=== PATIENT | female | born 1985 | race Caucasian/White ===

== ENCOUNTER 2019-06-20 13:32 | Emergency (ER) | payer SELFPAY ==
[~2019-06-20] VITALS: Ht 175.3 cm; Wt 115.0 kg
[2019-06-20] MEDS ORDERED: IV NORMAL SALINE 1000ML BAG 1,000 ML IV SCH (14:12)
[2019-06-20] MEDS ORDERED: ONDANSETRON PF 4 MG/2 ML VIAL. IVP ONE (14:15)
[2019-06-20 14:21] LABS: BASO % 1 % (0-3); EOS % 0 % (0-3); HEMOGLOBIN 12.4 g/dL (12.0-15.5); LYMPH # 0.8 x10^3/uL (1.0-4.8); LYMPH % 11 % (24-48); MEAN CORPUSCULAR HEMOGLOBIN 27 pg (25-35); MEAN CORPUSCULAR HGB CONC 34 g/dL (31-37); MEAN CORPUSCULAR VOLUME 80 fL (79-100); MONO # 0.5 x10^3/uL (0.0-1.1); MONO % 7 % (0-9); NEUT # 5.7 x10^3/uL (1.8-7.7); NEUT % 82 % (31-73); PLATELET COUNT 348 x10^3/uL (140-400); RED BLOOD COUNT 4.64 x10^6/uL (3.50-5.40); RED CELL DISTRIBUTION WIDTH 16.5 % (11.5-14.5)
[2019-06-20 14:22] LABS: BILIRUBIN,URINE NEGATIVE (NEG); CLARITY,URINE CLOUDY; COLOR,URINE YELLOW; NITRITE,URINE POSITIVE (NEG); PROTEIN,URINE NEGATIVE (NEG-TRACE)
[2019-06-20 14:30] LABS: BACTERIA,URINE MANY /HPF (0-FEW); RBC,URINE OCC /HPF (0-2); SQUAMOUS EPITHELIAL CELL,UR MOD /LPF
[2019-06-20 14:30] LABS: CALCIUM 9.3 mg/dL (8.5-10.1); CREATININE 0.7 mg/dL (0.6-1.0); POTASSIUM 3.5 mmol/L (3.5-5.1)
--- NOTE | 2019-06-20 14:31 | PHYS DOC ---
General Adult EDM: Chief Complaint: ABDOMINAL PAIN IN HPI: HPI: Patient is a 34 year old female without history of medical pro who presents with complaining of abdominal pain in . Patient is G8, with LMP of April 30 with home positive without confirmed test at doctor's office with complaining of nausea and vomiting and abdominal pain. Patient states she had a home positive test 1 week ago and since then has frequent episodes of nausea and vomiting and intermittent episodes of lower abdominal cramping pain. Patient rated her pain 8/10 and denies radiation of pain. Patient states she had couple days of vaginal spotting that improved and right now she has nonbloody discharge. Patient states she have not started OB care yet and had episode of vomiting during previous but this time has had more vomiting. Patient denies fever and chills, urinary symptoms, diarrhea and constipation, sick contact. Review of Systems: Review of Systems: Constitutional: Denies fever or chills. [] Eyes: Denies change in visual acuity. [] HENT: Denies nasal congestion or sore throat. [] Respiratory: Denies cough or shortness of breath. [] Cardiovascular: Denies chest pain or edema. [] GI: Reports abdominal pain, nausea, vomiting, denies bloody stools or diarrhea. [] : Denies dysuria. [] Musculoskeletal: Denies back pain or joint pain. [] Integument: Denies rash. [] Neurologic: Denies headache, focal weakness or sensory changes. [] Endocrine: Denies polyuria or polydipsia. [] Lymphatic: Denies swollen glands. [] Psychiatric: Denies depression or anxiety. [] Heart Score: Risk Factors: Risk Factors: DM, Current or recent (<one month) smoker, HTN, HLP, family history of CAD, obesity. Risk Scores: Score 0 - 3: 2.5% MACE over next 6 weeks - Discharge Home Score 4 - 6: 20.3% MACE over next 6 weeks - Admit for Clinical Observation Score 7 - 10: 72.7% MACE over next 6 weeks - Early Invasive Strategies Current Medications: Current Medications Medications (Trade) Dose Ordered Sig/Lino Start Time Stop Time Status Last Admin Dose Admin Ondansetron HCl (Zofran) 4 mg 1X ONCE 06/20/19 14:15 06/20/19 14:16 UNV Sodium Chloride 1,000 ml @ 1,000 mls/hr Q1H 06/20/19 14:12 06/20/19 15:11 UNV Allergies: Allergies: Allergies Coded Allergies Type Severity Reaction Last Updated Verified No Known Drug Allergies 06/20/19 No Physical Exam: PE: Constitutional: Well developed, well nourished, milddistress, non-toxic appearance, morbidly obese. [] HENT: Normocephalic, atraumatic, bilateral external ears normal, oropharynx moist, no oral exudates, nose normal. [] Eyes: PERRLA, EOMI, conjunctiva normal, no discharge. [] Neck: Normal range of motion, no tenderness, supple, no stridor. [] Cardiovascular:Heart rate regular rhythm, no murmur [] Lungs & Thorax: Bilateral breath sounds clear to auscultation [] Abdomen: Bowel sounds normal, soft, no tenderness, no masses, no pulsatile masses. [] Skin: Warm, dry, no erythema, no rash. [] Back: No tenderness, no CVA tenderness. [] Extremities: No tenderness, no cyanosis, no clubbing, ROM intact, no edema. [] Neurologic: Alert and oriented X 3, normal motor function, normal sensory function, no focal deficits noted. [] Psychologic: Affect anxious, judgement normal, mood normal. [] Current Patient Data: Labs: Laboratory Tests Test 06/20/19 13:47 06/20/19 14:03 POC Urine HCG, Qualitative Hcg positive (Negative) White Blood Count 7.0 x10^3/uL (4.0-11.0) Red Blood Count 4.64 x10^6/uL (3.50-5.40) Hemoglobin 12.4 g/dL (12.0-15.5) Hematocrit 37.0 % (36.0-47.0) Mean Corpuscular Volume 80 fL (79-100) Mean Corpuscular Hemoglobin 27 pg (25-35) Mean Corpuscular Hemoglobin Concent 34 g/dL (31-37) Red Cell Distribution Width 16.5 % (11.5-14.5) H Platelet Count 348 x10^3/uL (140-400) Neutrophils (%) (Auto) 82 % (31-73) H Lymphocytes (%) (Auto) 11 % (24-48) L Monocytes (%) (Auto) 7 % (0-9) Eosinophils (%) (Auto) 0 % (0-3) Basophils (%) (Auto) 1 % (0-3) Neutrophils # (Auto) 5.7 x10^3/uL (1.8-7.7) Lymphocytes # (Auto) 0.8 x10^3/uL (1.0-4.8) L Monocytes # (Auto) 0.5 x10^3/uL (0.0-1.1) Eosinophils # (Auto) 0.0 x10^3/uL (0.0-0.7) Basophils # (Auto) 0.0 x10^3/uL (0.0-0.2) Laboratory Tests 06/20/19 14:03 EKG: EKG: [] Radiology/Procedures: Radiology/Procedures: [][facility] [address] [place] [address] IMAGING REPORT Signed PATIENT: BRANDON GARCIA ACCOUNT: [id number] : 1985 LOCATION: ER AGE: 34 SEX: F EXAM STATUS: REG ER ORD. PHYSICIAN: MERCEDES GUDINO MD REASON: Abdominal pain in PROCEDURE: OB < 14 WKS EXAM: OBSTETRIC ULTRASOUND, <14 WEEKS. HISTORY: Abdominal pain in . COMPARISON: None. FINDINGS: Sonographic evaluation of the pelvis was performed transabdominally. The uterus is anteverted and measures 10.1 x 5.9 x 7.1 cm. There is a single intrauterine gestation measuring 7 weeks 0 days. heart rate is 157 bpm. A yolk sac is not visualized currently. The gestational sac is regular. There is no subchorionic collection. The right ovary measures 2.9 x 2.1 x 2.1 cm. The left ovary measures 3.2 x 1.7 x 1.6 cm. There is normal Doppler flow bilaterally. There is no adnexal mass. There is no significant free fluid. IMPRESSION: 1. Single intrauterine gestation measuring 7 weeks 0 days. heart rate 157 bpm. Nonvisualization of yolk sac may be secondary to transabdominal technique. Electronically signed by: Lyubov Catherine MD (06/20/2019 2:50 PM) [id number] DICTATED and SIGNED BY: CHARANJIT CATHERINE MD DATE: 06/20/19 1450 Course & Med Decision Making: Course & Med Decision Making Pertinent Labs and Imaging studies reviewed. (See chart for details) Evaluation of patient in ER showed 34-year-old female patient G8, P5 at 7 weeks of gestation with complaining of nausea and vomiting abdominal pain. Patient had unremarkable physical exam except for anxiety. Lab was unremarkable except for mild UTI. OB ultrasound showed intrauterine at the age of 7 weeks with heart rate of 157. Patient had blood type of O+. Patient was advised to follow-up with hyperemesis gravidarum diet and [employer]. Prescription for Zofran and Keflex was given. I've spoken with the patient and/or caregivers. I've explained the patient's condition, diagnosis and treatment plan based on information available to me at this time. I've answered the patient's and/or caregivers questions and addressed any concerns. The patient and/or caregivers have a good understanding the patient's diagnosis, condition and treatment plan as can be expected at this point. Vital signs have been stabilized. The patient's condition is stable for discharge from the emergency department. The patient will pursue further outpatient evaluation with her primary care provider or other designated consulting physician as outlined in the discharge instructions. Patient and/or caregivers are agreeable to this plan of care and follow-up instructions have been explained in detail. The patient and/or caregivers have received these instructions in written format and expressed understanding of these discharge instructions. The patient and her caregivers are aware that if any significant change in condition or worsening of symptoms should prompt him to immediately return to this of the closest emergency department. If an emergent department is not readily available I would encourage him to call 911. Ronna Disclaimer: Ronna Disclaimer: This electronic medical record was generated, in whole or in part, using a voice recognition dictation system. Departure Departure Impression: Primary Impression: Abdominal pain during intrauterine Additional Impressions: Hyperemesis gravidarum Urinary tract infection affecting Disposition: HOME, SELF-CARE (At 1557) Condition: IMPROVED Referrals: JACKI PRESSLEY MD Patient Instructions: Abdominal Pain During , Diet - Hyperemesis Gravidarum, Hyperemesis Gravidarum, - Urinary Tract Infection Additional Instructions: Drink plenty of liquids Follow-up with [employer] physician in 2 to 3 days Return to ER if not getting better Thank you for visiting [facility]. We appreciate you trusting us with your care. If any additional problems come up don't hesitate to return to visit us. Please follow up with your primary care provider so they can plan additional care if needed and know about the problem that you had. If symptoms worsen come back to the Emergency Department. Any concerning symptoms that start such as chest pain, shortness of air, weakness or numbness on one side of the body, running high fevers or any other concerning symptoms return to the ER. Scripts Cephalexin (KEFLEX) 500 Mg Capsule 1 CAP PO Q8HRS, #21 CAP 0 Refills Prov: MERCEDES GUDINO MD 06/20/19 Ondansetron Hcl (ZOFRAN) 4 Mg Tablet 1 TAB PO PRN Q6-8HRS for nausea, #12 TAB Prov: MERCEDES GUDINO MD 06/20/19 MERCEDES GUDINO MD Jun 20, 2019 14:31
[2019-06-20 14:35] LABS: ALBUMIN 3.2 g/dL (3.4-5.0); ALBUMIN/GLOBULIN RATIO 0.7 (1.0-1.7); TOTAL BILIRUBIN 0.5 mg/dL (0.2-1.0); TOTAL PROTEIN 7.7 g/dL (6.4-8.2)
--- NOTE | 2019-06-20 14:53 | RAD ---
EXAM: OBSTETRIC ULTRASOUND, <14 WEEKS. HISTORY: Abdominal pain in . COMPARISON: None. FINDINGS: Sonographic evaluation of the pelvis was performed transabdominally. The uterus is anteverted and measures 10.1 x 5.9 x 7.1 cm. There is a single intrauterine gestation measuring 7 weeks 0 days. heart rate is 157 bpm. A yolk sac is not visualized currently. The gestational sac is regular. There is no subchorionic collection. The right ovary measures 2.9 x 2.1 x 2.1 cm. The left ovary measures 3.2 x 1.7 x 1.6 cm. There is normal Doppler flow bilaterally. There is no adnexal mass. There is no significant free fluid. IMPRESSION: 1. Single intrauterine gestation measuring 7 weeks 0 days. heart rate 157 bpm. Nonvisualization of yolk sac may be secondary to transabdominal technique. Electronically signed by: Lyubov Catherine MD (06/20/2019 2:50 PM) [id number]
[2019-06-20 15:52] VITALS: BP 114/67
[2019-06-20] MEDS ORDERED: CEPH-264 PO (15:59)
[2019-06-20] MEDS ORDERED: ONDA4TAB7 PO (15:59)
== END 2019-06-20 17:12 | disposition home or self-care (01) ==
LOC: ER 13:32
DX: O23.41 Unspecified infection of urinary tract in pregnancy, first trimester (principal); O21.0 Mild hyperemesis gravidarum; R10.30 Lower abdominal pain, unspecified; Z3A.01 Less than 8 weeks gestation of pregnancy
CPT/HCPCS: 36415; 76801; 80053; 81001; 81025; 83690; 84702; 85025; 86900; 86901; 87086; 96361; 96374; 99284; J2405; J7030